=== PATIENT | male | born 1950 | race African-American/Black ===

== ENCOUNTER 2016-06-29 13:05 | Inpatient (IN) | payer MEDICARE, OTHER ==
--- NOTE | ~2016-06-29 | DS ---
Discharge Summary [facility] [address] [place]. [address] NAME: GILDARDO LAZO JR : 50 STATUS : DIS IN PAT#: [id number] AGE: 65 ADM/REG DATE : 06/29/16 MR#: [id number] REPORT SERV DATE: 07/10/16 DICTATED BY: PATRICIA ORTEGA DATE: 07/10/16 REPORT STATUS : Draft TRANSCRIBED BY: DALE DATE: 07/10/16 Data Collection from hospitalization DISCHARGE DIAGNOSES: 1. End-stage renal disease. 2. Hyperkalemia. 3. Hypertension. 4. Hepatitis C. 5. Ejection fraction 40%. 6. Bradycardia. 7. Hyperlipidemia. 8. Neuropathy. 9. Hypoalbuminemia. 10.History of hepatitis C. 11.History of gout. 12.Neuropathy. 13.History of dialysis noncompliance. 14.History of lacunar infarct. CONSULTATIONS: Volodymyr Gunter M.D. PROCEDURES PERFORMED: 1. Left upper extremity fistulogram. 2. Percutaneous angioplasty of the AV fistula using a 9 mm balloon, 06/30/2016. DISCHARGE MEDICATIONS: Xanax 1 mg daily as needed, Elavil 50 mg at bedtime, aspirin 81 mg daily, Coreg 3.125 mg twice a day, Sensipar 60 mg daily, Plavix 75 mg daily, Neurontin 300 mg twice a day as needed, Nitrostat 0.4 mg sublingually as needed, Pravachol 40 mg at bedtime, Renvela 2400 mg three times a day with meals. CONDITION ON DISCHARGE: Stable. DISPOSITION: The patient was discharged home on a renal diet with activities as instructed. He would follow up with Dr. Volodymyr Gunter as instructed. He was scheduled for his hemodialysis appointment at [facility]. HOSPITAL COURSE: This is a 65-year-old man who has end-stage renal disease and dialyzes on Mondays, Wednesdays, and Fridays through a left upper arm fistula at the [facility] in [place]. He had been on dialysis since 2004. I called the clinic on the day of this admission and discussed with the staff there that he had not missed any treatments the previous week. On 06/24/2016 on a lab draw, his predialysis potassium was 8.2. On 06/26/2016, his predialysis lab draw showed potassium 7.2. At that time, he was placed on Veltassa prescription for potassium lowering. He was scheduled for [facility]. 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 In the emergency room, he was found to have potassium of 9.0. He had EKG changes with bradycardia and had a pulse of 41 on admission. This was treated medically. Neurology was called and he was taken to the Dialysis Unit urgently where dialysis was initiated. In Discharge Summary [facility] [address] [facility] [place]. [address] NAME: GILDARDO LAZO : 50 STATUS : DIS IN PAT#: [id number] AGE: 65 ADM/REG DATE : 06/29/16 MR#: [id number] REPORT SERV DATE: 07/10/16 DICTATED BY: PATRICIA ORTEGA DATE: 07/10/16 REPORT STATUS : Draft TRANSCRIBED BY: DALE DATE: 07/10/16 talking with him, he denied any dietary noncompliance but interestingly he had been eating some self-rising flower out of the bag over the past several weeks. He was admitted to the hospital at this time for further evaluation and treatment. Upon admission, his creatinine level was 15.2. He had not had recent dialysis noncompliance. He has severe hyperkalemia with potassium level of 9 and this was life- threatening. He also had EKG changes. He was going to be urgently dialyzed with 1 potassium dialysate for one hour and then 2 potassium dialysate for two hours. JUDY inhibitor was going to be stopped. Dialysis would be performed again the following day. We would protect his left arm. He was seen in consultation by Dr. Volodymyr Gunter for evaluation of possible recirculation. His potassium had decreased. The patient denied any complaints. He seemed to think that dialysis was going well. He said that he is compliant with his dialysis but there was documentation to suggest otherwise. The patient does have end-stage renal disease. There was some concern that he had some recirculation issues. Given the severity of his hyperkalemia, he felt that it was obligated to perform a fistulogram with possible intervention. The patient agreed to proceed. The following day, the patient underwent left upper extremity fistulogram and percutaneous angioplasty of the AV fistula using a 9 mm balloon. Hemodialysis therapy was performed. He was still hyperkalemic. Supportive care continued. On 07/01/2016, he continued to undergo hemodialysis. He had no dyspnea. He had no edema. Over the next couple of days, he has no dyspnea while lying flat. He continued to undergo hemodialysis therapy. He had no new complaints. He remained alert and cooperative. Discharge planning was performed. Potassium level was 5.0. On 07/04/2016, he continued to do well. Discharge instructions were given. Due to his improved and stable condition, he was discharged home with the above-stated instructions. Information collected by: Shelby Harmon I submit the above information as my discharge summary. TG/MODMalaika Patricia Ortega M.D. / [id number] CC: Caro Luong M.D. Sachin V Phade, M.D.
--- NOTE | ~2016-06-29 | OP ---
Record Of Operation [facility] [address] [place]. [address] NAME: GILDARDO LAZO JR : 50 STATUS : ADM IN PAT#: [id number] AGE: 65 ADM/REG DATE : 06/29/16 MR#: [id number] REPORT SERV DATE: 07/01/16 DICTATED BY: VOLODYMYR GUNTER DATE: 07/01/16 REPORT STATUS : Draft TRANSCRIBED BY: DALE DATE: 07/01/16 DATE OF PROCEDURE: 06/30/2016 PREOPERATIVE DIAGNOSES: 1. Recirculation. 2. End-stage renal disease. 3. Hyperkalemia. POSTOPERATIVE DIAGNOSES: 1. Recirculation. 2. End-stage renal disease. 3. Hyperkalemia. PROCEDURE: 1. Left upper extremity fistulogram. 2. Percutaneous angioplasty of the AV fistula using a 9 mm balloon. FLAT LOCKER: None. ANESTHESIA: MAC plus local. INDICATIONS: The patient is a 65-year-old gentleman who has a left brachiocephalic fistula that is apparently had multiple interventions in the past. He has recurrent hyperkalemia and it is thought that he is recirculating. Thus, he was consented for intervention. DESCRIPTION OF PROCEDURE: After informed consent was obtained, the patient's left upper extremity was prepped and draped in usual sterile fashion. Ultrasound-guided access was obtained of the left upper extremity AV fistula in an antegrade fashion. I obtained a fistulogram. There was a stenosis within one of the stents near the shoulder. This was within the cephalic vein. I placed a 6-[place] sheath and angioplastied this with a 9 mm balloon. There was a great result with this. There was no other significant stenosis identified. Thus, I withdrew my wire, catheter, and sheath and placed a stitch for hemostasis. The patient tolerated the procedure well without any intraprocedural complications noted. RANULFO/DALE Volodymyr Gunter M.D. / [id number] CC: Pramod Schwartz M.D.
--- NOTE | ~2016-06-29 | HP ---
History And Physical [facility] [address] [place]. [address] NAME: GILDARDO LAZO JR : 50 STATUS : ADM IN [facility]#: [id number] AGE: 65 ADM/REG DATE : 06/29/16 MR#: [id number] REPORT SERV DATE: 06/29/16 DICTATED BY: PATRICIA SCHWARTZ DATE: 06/29/16 REPORT STATUS : Draft TRANSCRIBED BY: DALE DATE: 06/29/16 DATE OF ADMISSION: 06/29/2016 CHIEF COMPLAINT: Weakness. HISTORY OF PRESENT ILLNESS: Mr. Lazo is a 65-year-old male with ESRD who dialyzes on Wednesday, Wednesday, and Wednesday through a left upper arm fistula at the [facility] in [place], [place]. He has been on dialysis since December 2004. I called the clinic today and discussed with the staff there that he has not missed any treatments last week. On 06/24/2016 lab draw, his predialysis potassium was 8.2. On 06/26/2016, his predialysis lab draw showed potassium 7.2. At that time, he was placed on Veltassa prescription for potassium lowering. He was scheduled for outpatient fistulogram tomorrow [facility]. 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 Here in the ER, he was found to have potassium of 9.0. He had EKG changes with bradycardia having a pulse of 41 on admission. This was treated medically. Nephrology was called and he was brought up to the dialysis unit urgently where dialysis was initiated. In talking with him, he denies any dietary noncompliance, but interestingly, he has been eating some self-rising flower out of the bag over the last several weeks. PAST MEDICAL HISTORY: 1. ESRD, Wednesday, Wednesday, Wednesday, left upper arm fistula, [facility], December 2004. 2. Hypertension. 3. Hyperlipidemia. 4. History of gout. 5. Hepatitis C. 6. Neuropathy. 7. Cardiac catheterization with nonischemic cardiomyopathy, EF 40% by echo, February 2014. 8. History of dialysis noncompliance with two admissions for hyperkalemia, March 2016. 9. History lacunar infarct on previous imaging studies. MEDICATIONS: Aspirin 81 mg daily, Coreg 3.125 mg b.i.d., Elavil 50 mg at h.s., Neurontin 100 mg t.i.d., Percocet p.r.n., Plavix 75 mg daily, Pravachol 40 mg h.s., Zestril 5 mg h.s., Renvela 2400 mg with meals, Sensipar 60 mg on dialysis days, Tums 2000 mg q.h.s., and Veltassa one packet daily. FAMILY HISTORY: No ESRD. SOCIAL HISTORY: He is a , nonsmoker. REVIEW OF SYSTEMS: See HPI for pertinent details. PHYSICAL EXAMINATION: VITAL SIGNS: Blood pressure 111/69, pulse 62, respirations 27, and 95% sat receiving a nebulizer treatment for hyperkalemia. History And Physical [address] [address] NAME: GILDARDO LAZO JR : 50 STATUS : ADM IN [facility]#: [id number] AGE: 65 ADM/REG DATE : 06/29/16 MR#: [id number] REPORT SERV DATE: 06/29/16 DICTATED BY: PATRICIA SCHWARTZ DATE: 06/29/16 REPORT STATUS : Draft TRANSCRIBED BY: DALE DATE: 06/29/16 GENERAL: He is a pleasant, male, awake, alert, oriented, cooperative with exam. He is not weighed today as he is on an ER stretcher. He is in no distress, lying flat. HEENT: Sclerae are without icterus. Conjunctivae are not injected. Oropharynx is clear. NECK: Supple. No JVD. LUNGS: He has bilateral rhonchi without dyspnea or tachypnea. Regular rate and rhythm with peaked T-waves on the monitor. ABDOMEN: Soft, nontender, and nondistended. Bowel sounds are present throughout without rebound, guarding, or peritoneal signs. EXTREMITIES: Without edema. SKIN: Without rash. NEURO: Nonfocal. Left upper arm AV fistula blood flow 450 mL/minute. DIAGNOSTIC DATA: Chest x-ray is pending at the time of this dictation. LABORATORY DATA: Sodium 134, potassium 9, bicarb 28, BUN 60, creatinine 15.2, calcium 8.2, and magnesium 2.8. Troponin 0.06. White count 7.9, hemoglobin 13.7, and platelets 185,000. INR 1.2. ASSESSMENT AND PLAN: Mr. Lazo has end-stage renal disease with hyperkalemia, no recent dialysis noncompliance, presents with severe hyperkalemia that is life threatening with EKG changes. Admit to the Renal Service. We will urgently dialyze with one potassium dialysate for one hour and then two potassium dialysate for two hours. We will stop his JUDY inhibitor. Dialysis again tomorrow, protect the left arm. We will ask Vascular to evaluate inpatient for fistulogram to evaluate for possible anatomic causes of under dialysis. Supportive care. Watch labs. NC/MODL Patricia Schwartz M.D. / [id number] CC: Patricia Schwartz M.D.
--- NOTE | ~2016-06-29 | CN ---
Consultation Report [place] [id number] [facility] [place]. [address] NAME: GILDARDO LAZO JR : 50 STATUS : ADM IN PAT#: [id number] AGE: 65 ADM/REG DATE : 06/29/16 MR#: [id number] REPORT SERV DATE: 06/30/16 DICTATED BY: VOLODYMYR GUNTER DATE: 06/29/16 REPORT STATUS : Draft TRANSCRIBED BY: DALE DATE: 06/29/16 CONSULT NOTE DATE OF CONSULTATION: 06/29/2016 REASON FOR CONSULTATION: Evaluation for possible recirculation. REFERRING PHYSICIAN: Pramod Schwartz M.D. BRIEF HISTORY: The patient is a 65-year-old gentleman with past medical history significant for end-stage renal disease, hypertension, hepatitis C, chronic back pain, and some question of a stroke in the past, who was admitted to the hospital with hyperkalemia. He underwent dialysis today. His potassium has come down. As he reportedly had dialysis as recently as Wednesday, there was some thought that he has recirculation. I was consulted for evaluation and treatment. The patient denies any complaints. He seems to think that dialysis has been going well. He says that he is compliant with his dialysis, but there is documentation to suggest otherwise. PAST MEDICAL HISTORY: End-stage renal disease, hypertension, hepatitis C, gout, depression, chronic back pain, neuropathy prior congestive heart failure with an EF of 25%, and stroke. PAST SURGICAL HISTORY: Cardiac catheterization, left brachiocephalic arteriovenous fistula. SOCIAL HISTORY: He denies tobacco, alcohol, or drug use. FAMILY HISTORY: Noncontributory. MEDICATIONS: Documented on the chart and were reviewed. ALLERGIES: NONE. REVIEW OF SYSTEMS: Complete review of systems was performed and is negative with the exception of aforementioned findings. PHYSICAL EXAMINATION: VITAL SIGNS: Vital signs are documented on the chart and were reviewed. GENERAL: The patient awake, alert, oriented. No apparent distress. He does seem a little sleepy. HEAD AND NECK: Benign. HEART: Regular rate and rhythm. LUNGS: Clear. ABDOMEN: Soft, nontender, nondistended with a nonaneurysmal aorta. EXTREMITIES: He has a normal complement of upper extremity pulses without any significant Consultation Report [place] [id number] [facility] [place]. [address] NAME: GILDARDO LAZO JR : 50 STATUS : ADM IN PAT#: [id number] AGE: 65 ADM/REG DATE : 06/29/16 MR#: [id number] REPORT SERV DATE: 06/30/16 DICTATED BY: VOLODYMYR GUNTER DATE: 06/29/16 REPORT STATUS : Draft TRANSCRIBED BY: MODMalaika DATE: 06/29/16 edema or ischemic ulcerations. He has a left brachiocephalic fistula in place. There was a good thrill within the fistula. He has palpable femoral pulses. His feet are pink and warm. NEUROLOGIC: Grossly nonfocal. MUSCULOSKELETAL: Otherwise benign. LABORATORY DATA: His laboratory investigations reveal a hyperkalemia upon admission that has since resolved. ASSESSMENT AND PLAN: It looks like this gentleman has a history of end-stage renal disease and was admitted with hyperkalemia. There was some concern that he has some recirculation issues. Given the severity of his hyperkalemia, I think we are obligated to perform a fistulogram with possible intervention. Risks, benefits, and alternatives were discussed. He agreed to proceed. We will get this scheduled for tomorrow. FILBERT GROWER/DALE Volodymyr Gunter M.D. / [id number] CC: Pramod Schwartz M.D.
[2016-06-29 12:43] LABS: BASOPHILS 0.3 %; BASOPHILS ABSOLUTE 0.02 10/3/uL (0.0-0.16); EOSINOPHILS 2.5 %; HEMATOCRIT 45.3 % (40.0-51.0); HEMOGLOBIN 13.7 g/dL (13.6-17.8); IMMATURE GRANULOCYTES 0.3 %; IMMATURE GRANULOCYTES ABSOLUTE 0.02 10/3/uL (0.0-0.11); LYMPHOCYTES 25.9 %; LYMPHOCYTES ABSOLUTE 2.04 10/3/uL (0.67-4.30); MEAN CORPUS HGB CONC 30.2 g/dL (32.0-36.0); MEAN CORPUSCULAR HEMOGLOB 23.1 pg (26.0-34.0); MEAN CORPUSCULAR VOLUME 76.5 fL (80-100); MEAN PLATELET VOLUME 9.5 fL (9.2-13.0); MONOCYTES 6.2 %; MONOCYTES ABSOLUTE 0.49 10/3/uL (0.21-1.20); NEUTROPHILS 64.8 %; NEUTROPHILS ABSOLUTE 5.12 10/3/uL (2.02-8.40); PLATELET COUNT 185 10/3/uL (150-400); RBC DISTRIBUTION WIDTH 17.8 % (12.0-16.0); RED CELL COUNT 5.92 10/6/uL (4.7-6.1); WHITE BLOOD CELLS 7.9 10/3/uL (4.5-10.5)
[2016-06-29 12:44] LABS: ER CBC TAT 0 Hrs 10 Mins; MANUAL DIFF NO %
[2016-06-29 12:50] LABS: INTERNATIONAL NORMAL RATI 1.2 UNITS (-); PARTIAL THROMBO TIME 29.4 SEC (22.5-37.2); PROTIME (NOT ORD) 14.9 SEC (12.0-14.5)
[2016-06-29 13:00] LABS: BUN (BLOOD UREA NITROGEN) 60 MG/DL (6-23); CALCIUM, SERUM 8.2 MG/DL (8.5-10.4); CHEST PAIN PROFILE TAT 0 Hrs 27 Mins; CHLORIDE, SERUM 99 MMOL/L (96-112); CO2 (CARBON DIOXIDE) 28 MMOL/L (24-34); GFR AFRICAN AMERICAN 3 ML/MIN (>=60); GFR NON AFRICAN AMERICAN 3 ML/MIN (>=60); GLUCOSE, SERUM 85 MG/DL (60-99); SODIUM, SERUM 134 MMOL/L (135-148); TROPONIN I 0.06 NG/ML (<0.05)
[~2016-06-29 13:05] MED LIST: ADALAT CC90 MG PO; ADALAT PO; AMIT50 PO; AMITRIPTYLINE PO; ASAB PO; ASCRIPTIN PO; CARDU2 PO; COREG PO; COREG12 PO; COREG3 PO; COREG6 PO; DIALYSIS; DOCUSOFT S100 MG PO; FOSRENOL1000 MG PO; GABAPENTIN PO; HALF81 PO; IMDUR120 PO; IMDUR30 PO; INH300 PO; ISOSORBIDE PO; LIOR10 PO; LISINOPRIL PO; LOP25 PO; LYRICA75 PO; METOPROLOL PO; NEPHROCAPS PO; NEUR100 PO; NEUR300 PO; NEUR400 PO; NITROSTAT0.4 MG SL; OXYCON20 PO; PERCOCET1 TA4 PO; PHOSLO PO; PLAVIX PO; PRAVACHOL40 MG PO; PRILO PO; PRIN10 PO; RENAGEL PO; RENO CAPS PO; RENVELA800 MG PO; SENSIPAR30 MG PO; SENSIPAR60 MG PO; SEVE800T PO; TOPXL100 PO; TOPXL25 PO; TRIAMCINOLON0.13 EX; TUMSROLL PO; VOLT75 PO; XANAX1 MG PO; ZOCOR20 PO
[2016-06-29 18:04] LABS: ALBUMIN 3.7 G/DL (3.5-5.0); CALCIUM, SERUM 8.9 MG/DL (8.5-10.4); CHLORIDE, SERUM 104 MMOL/L (96-112); CO2 (CARBON DIOXIDE) 27 MMOL/L (24-34); SODIUM, SERUM 139 MMOL/L (135-148)
[2016-06-29 18:07] LABS: BUN (BLOOD UREA NITROGEN) 18 MG/DL (6-23); CREATININE 5.92 MG/DL (0.70-1.30); GFR AFRICAN AMERICAN 11 ML/MIN (>=60); GFR NON AFRICAN AMERICAN 9 ML/MIN (>=60); GLUCOSE, SERUM 106 MG/DL (60-99); PHOSPHORUS, SERUM 2.3 MG/DL (2.5-4.5); POTASSIUM, SERUM 4.1 MMOL/L (3.5-5.3)
[2016-06-29] MEDS ORDERED: SEVE800T PO (19:40)
[2016-06-29] MEDS ORDERED: PRAVACHOL40 MG PO (19:40)
[2016-06-29] MEDS ORDERED: SENSIPAR60 MG PO (19:41)
[2016-06-29] MEDS ORDERED: XANAX1 MG PO (19:41)
[2016-06-29] MEDS ORDERED: HALF81 PO (19:41)
[2016-06-29] MEDS ORDERED: AMIT50 PO (19:41)
[2016-06-29] MEDS ORDERED: NITROSTAT0.4 MG SL (19:42)
[2016-06-29] MEDS ORDERED: NEUR300 PO (19:42)
[2016-06-29] MEDS ORDERED: COREG3 PO (19:42)
[2016-06-29] MEDS ORDERED: PLAVIX PO (19:43)
[2016-06-30 08:15] LABS: ALBUMIN 3.2 G/DL (3.5-5.0); CHLORIDE, SERUM 101 MMOL/L (96-112); CO2 (CARBON DIOXIDE) 27 MMOL/L (24-34); SODIUM, SERUM 136 MMOL/L (135-148)
[2016-06-30 08:22] LABS: BUN (BLOOD UREA NITROGEN) 35 MG/DL (6-23); CALCIUM, SERUM 7.6 MG/DL (8.5-10.4); GFR AFRICAN AMERICAN 5 ML/MIN (>=60); GFR NON AFRICAN AMERICAN 4 ML/MIN (>=60); GLUCOSE, SERUM 83 MG/DL (60-99); PHOSPHORUS, SERUM 3.9 MG/DL (2.5-4.5); POTASSIUM, SERUM 7.3 MMOL/L (3.5-5.3)
[2016-07-01 06:40] LABS: ALBUMIN 2.8 G/DL (3.5-5.0); CALCIUM, SERUM 8.3 MG/DL (8.5-10.4); CHLORIDE, SERUM 100 MMOL/L (96-112); CO2 (CARBON DIOXIDE) 29 MMOL/L (24-34); GLUCOSE, SERUM 70 MG/DL (60-99); SODIUM, SERUM 137 MMOL/L (135-148)
[2016-07-01 06:46] LABS: BUN (BLOOD UREA NITROGEN) 25 MG/DL (6-23); CREATININE 8.56 MG/DL (0.70-1.30); GFR AFRICAN AMERICAN 7 ML/MIN (>=60); GFR NON AFRICAN AMERICAN 6 ML/MIN (>=60); PHOSPHORUS, SERUM 5.3 MG/DL (2.5-4.5); POTASSIUM, SERUM 6.6 MMOL/L (3.5-5.3)
[2016-07-02 07:29] LABS: ALBUMIN 2.8 G/DL (3.5-5.0); BUN (BLOOD UREA NITROGEN) 24 MG/DL (6-23); CHLORIDE, SERUM 105 MMOL/L (96-112); GLUCOSE, SERUM 70 MG/DL (60-99); SODIUM, SERUM 141 MMOL/L (135-148)
[2016-07-02 07:34] LABS: CO2 (CARBON DIOXIDE) 24 MMOL/L (24-34); CREATININE 7.52 MG/DL (0.70-1.30); GFR AFRICAN AMERICAN 8 ML/MIN (>=60); GFR NON AFRICAN AMERICAN 7 ML/MIN (>=60); PHOSPHORUS, SERUM 3.9 MG/DL (2.5-4.5); POTASSIUM, SERUM 6.7 MMOL/L (3.5-5.3)
[2016-07-02 09:33] LABS: POTASSIUM, SERUM 4.8 MMOL/L (3.5-5.3)
[2016-07-03 05:48] LABS: BUN (BLOOD UREA NITROGEN) 22 MG/DL (6-23); CALCIUM, SERUM 8.9 MG/DL (8.5-10.4); CHLORIDE, SERUM 103 MMOL/L (96-112); CO2 (CARBON DIOXIDE) 26 MMOL/L (24-34); CREATININE 6.88 MG/DL (0.70-1.30); GFR AFRICAN AMERICAN 9 ML/MIN (>=60); GFR NON AFRICAN AMERICAN 8 ML/MIN (>=60); GLUCOSE, SERUM 95 MG/DL (60-99); PHOSPHORUS, SERUM 4.5 MG/DL (2.5-4.5); SODIUM, SERUM 140 MMOL/L (135-148)
[2016-07-04 09:14] LABS: BASOPHILS 0.2 %; BASOPHILS ABSOLUTE 0.01 10/3/uL (0.0-0.16); EOSINOPHILS ABSOLUTE 0.26 10/3/uL (0.0-0.53); HEMATOCRIT 40.7 % (40.0-51.0); HEMOGLOBIN 12.3 g/dL (13.6-17.8); LYMPHOCYTES 28.3 %; LYMPHOCYTES ABSOLUTE 1.47 10/3/uL (0.67-4.30); MANUAL DIFF NO %; MEAN CORPUS HGB CONC 30.2 g/dL (32.0-36.0); MEAN CORPUSCULAR HEMOGLOB 22.9 pg (26.0-34.0); MEAN CORPUSCULAR VOLUME 75.8 fL (80-100); MEAN PLATELET VOLUME 8.9 fL (9.2-13.0); MONOCYTES 7.1 %; MONOCYTES ABSOLUTE 0.37 10/3/uL (0.21-1.20); NEUTROPHILS 59.4 %; NEUTROPHILS ABSOLUTE 3.08 10/3/uL (2.02-8.40); PLATELET COUNT 134 10/3/uL (150-400); RBC DISTRIBUTION WIDTH 17.9 % (12.0-16.0); RED CELL COUNT 5.37 10/6/uL (4.7-6.1); WHITE BLOOD CELLS 5.2 10/3/uL (4.5-10.5)
[2016-07-04 09:28] LABS: ALBUMIN 2.8 G/DL (3.5-5.0); CHLORIDE, SERUM 101 MMOL/L (96-112); CO2 (CARBON DIOXIDE) 27 MMOL/L (24-34); GLUCOSE, SERUM 83 MG/DL (60-99); POTASSIUM, SERUM 5.3 MMOL/L (3.5-5.3); SODIUM, SERUM 139 MMOL/L (135-148)
[2016-07-04 09:36] LABS: BUN (BLOOD UREA NITROGEN) 36 MG/DL (6-23); CALCIUM, SERUM 7.6 MG/DL (8.5-10.4); CREATININE 9.81 MG/DL (0.70-1.30); GFR AFRICAN AMERICAN 6 ML/MIN (>=60); GFR NON AFRICAN AMERICAN 5 ML/MIN (>=60)
[2016-08-25] MEDS ORDERED: XANAX1 MG PO (14:26)
[2016-08-25] MEDS ORDERED: AMIT50 PO (14:26)
[2016-08-25] MEDS ORDERED: HALF81 PO (14:27)
[2016-08-25] MEDS ORDERED: PERCOCET 10/3251 TAB PO (14:27)
[2016-08-25] MEDS ORDERED: SEVE800T PO (14:27)
[2016-08-25] MEDS ORDERED: SENSIPAR60 MG PO (14:27)
[2016-08-25] MEDS ORDERED: COREG3 PO (14:28)
[2016-08-25] MEDS ORDERED: NEUR300 PO (14:28)
[2016-08-25] MEDS ORDERED: PRAVACHOL40 MG PO (14:28)
[2016-08-25] MEDS ORDERED: NITROSTAT0.4 MG SL (14:29)
== END 2016-07-04 19:08 | disposition home or self-care (01) | DRG 628 ==
LOC: ER 13:05 → 2SO 16:53
PROVIDERS: Emergency Medicine; Internal Medicine Nephrology; Nurse Practitioner; Surgery
PROC: 5A1D60Z (ICD-10-PCS; 2016-06-29)
PROC: 057F3ZZ Dilation of Left Cephalic Vein, Percutaneous Approach (ICD-10-PCS; principal; 2016-06-30 17:00)
PROC: B31J1ZZ Fluoroscopy of Left Upper Extremity Arteries using Low Osmolar Contrast (ICD-10-PCS; 2016-06-30 17:00)
DX: E87.5 Hyperkalemia (principal); N18.6 End stage renal disease; I13.2 Hypertensive heart and chronic kidney disease with heart failure and with stage 5 chronic kidney disease, or end stage renal disease; I42.9 Cardiomyopathy, unspecified; G62.9 Polyneuropathy, unspecified; E88.09 Other disorders of plasma-protein metabolism, not elsewhere classified; I50.22 Chronic systolic (congestive) heart failure; R00.1 Bradycardia, unspecified; E78.5 Hyperlipidemia, unspecified; M10.9 Gout, unspecified; B19.20 Unspecified viral hepatitis C without hepatic coma; Z91.15 Patient's noncompliance with renal dialysis; Z99.2 Dependence on renal dialysis; Z86.73 Personal history of transient ischemic attack (TIA), and cerebral infarction without residual deficits
CPT/HCPCS: 36600; 36902; 71010; 80048; 80069; 82330; 82550; 82803; 82947; 82962; 83735; 83880; 84132; 84295; 84484; 85014; 85025; 85610; 85730; 93005; 94640; 96374; 96375; 99291; A9270-GY; C1725; C1769; C1894; G0257; J0610; J3010; Q9966

== ENCOUNTER 2016-07-17 14:18 | Emergency (ER) | payer MEDICARE, OTHER ==
[2016-07-17 14:26] LABS: BASOPHILS 0 %; EOSINOPHILS 4.6 %; EOSINOPHILS ABSOLUTE 0.15 10/3/uL (0.0-0.53); HEMATOCRIT 42.6 % (40.0-51.0); HEMOGLOBIN 12.8 g/dL (13.6-17.8); IMMATURE GRANULOCYTES 0.3 %; IMMATURE GRANULOCYTES ABSOLUTE 0.01 10/3/uL (0.0-0.11); LYMPHOCYTES 26.5 %; LYMPHOCYTES ABSOLUTE 0.86 10/3/uL (0.67-4.30); MEAN CORPUSCULAR HEMOGLOB 23.1 pg (26.0-34.0); MEAN CORPUSCULAR VOLUME 76.9 fL (80-100); MONOCYTES 15.1 %; MONOCYTES ABSOLUTE 0.49 10/3/uL (0.21-1.20); NEUTROPHILS 53.5 %; NEUTROPHILS ABSOLUTE 1.73 10/3/uL (2.02-8.40); PLATELET COUNT 143 10/3/uL (150-400); RED CELL COUNT 5.54 10/6/uL (4.7-6.1); WHITE BLOOD CELLS 3.2 10/3/uL (4.5-10.5)
[2016-07-17 14:29] LABS: MANUAL DIFF NO %
[2016-07-17 14:32] LABS: INTERNATIONAL NORMAL RATI 1.1 UNITS (-); PARTIAL THROMBO TIME 31.3 SEC (22.5-37.2); PROTIME (NOT ORD) 13.8 SEC (12.0-14.5)
[2016-07-17 14:40] LABS: BUN (BLOOD UREA NITROGEN) 14 MG/DL (6-23); CALCIUM, SERUM 8.4 MG/DL (8.5-10.4); CHEST PAIN PROFILE TAT 0 Hrs 18 Mins; CHLORIDE, SERUM 96 MMOL/L (96-112); CO2 (CARBON DIOXIDE) 30 MMOL/L (24-34); CREATININE 6.58 MG/DL (0.70-1.30); GFR AFRICAN AMERICAN 9 ML/MIN (>=60); GFR NON AFRICAN AMERICAN 8 ML/MIN (>=60); GLUCOSE, SERUM 97 MG/DL (60-99); SODIUM, SERUM 135 MMOL/L (135-148); TROPONIN I 0.07 NG/ML (<0.05)
[2016-08-25] MEDS ORDERED: AMIT50 PO (14:26)
[2016-08-25] MEDS ORDERED: XANAX1 MG PO (14:26)
[2016-08-25] MEDS ORDERED: SEVE800T PO (14:27)
[2016-08-25] MEDS ORDERED: PERCOCET 10/3251 TAB PO (14:27)
[2016-08-25] MEDS ORDERED: HALF81 PO (14:27)
[2016-08-25] MEDS ORDERED: SENSIPAR60 MG PO (14:27)
[2016-08-25] MEDS ORDERED: NEUR300 PO (14:28)
[2016-08-25] MEDS ORDERED: PRAVACHOL40 MG PO (14:28)
[2016-08-25] MEDS ORDERED: COREG3 PO (14:28)
[2016-08-25] MEDS ORDERED: NITROSTAT0.4 MG SL (14:29)
== END 2016-07-17 17:42 | disposition home or self-care (01) ==
LOC: ER 14:18
PROVIDERS: Emergency Medicine
DX: R07.89 Other chest pain (principal); I13.0 Hypertensive heart and chronic kidney disease with heart failure and stage 1 through stage 4 chronic kidney disease, or unspecified chronic kidney disease; N18.9 Chronic kidney disease, unspecified; I50.9 Heart failure, unspecified; Z88.5 Allergy status to narcotic agent; Z79.899 Other long term (current) drug therapy; Z79.82 Long term (current) use of aspirin
CPT/HCPCS: 71010; 80048; 83735; 84484; 85025; 85610; 85730; 93005; 99285

== ENCOUNTER 2016-08-25 15:43 | Inpatient (IN) | payer MEDICARE, OTHER ==
--- NOTE | ~2016-08-25 | OP ---
Record Of Operation [facility] [address] [place]. [address] NAME: GILDARDO LAZO JR : 50 STATUS : DIS IN PAT#: [id number] AGE: 65 ADM/REG DATE : 08/25/16 MR#: [id number] REPORT SERV DATE: 08/29/16 DICTATED BY: VOLODYMYR GUNTER DATE: 08/29/16 REPORT STATUS : Draft TRANSCRIBED BY: DALE DATE: 08/29/16 DATE OF PROCEDURE: 08/26/2016 PREOPERATIVE DIAGNOSIS: Hyperkalemia. POSTOPERATIVE DIAGNOSIS: Hyperkalemia. PROCEDURE: Left upper extremity fistulogram with percutaneous angioplasty of the left innominate vein using a 10-mm balloon. SURGEON: Volodymyr Gunter M.D. MARKET INVESTIGATOR: None. ANESTHESIA: MAC plus local. INDICATIONS: The patient is a 65-year-old gentleman, who has persistent issues with hyperkalemia. There is some question as to whether he has recirculation issues, so he was consented for intervention. DESCRIPTION OF PROCEDURE: After informed consent was obtained, the patient was taken to the operating room and placed in the supine position on the operating table. Monitored anesthesia was administered. The patient's left upper extremity was prepped and draped in usual sterile fashion. Ultrasound-guided access was obtained of the left upper extremity AV fistula in an antegrade fashion. I obtained a fistulogram that demonstrated no hemodynamically significant stenosis of the AV fistula in two different views. There were multiple stents placed that were all patent, but there was about 30% stenosis within the left innominate vein stent. I placed a sheath and angioplastied the left innominate vein with a 10-mm balloon. There was a great result with this. Thus, I withdrew my wire, catheter, and sheath, and placed a stitch for hemostasis. The patient tolerated the procedure well without any intraprocedural complications noted. RANULFO/DALE Volodymyr Gunter M.D. / [id number] CC: Caro Ortiz M.D.
--- NOTE | ~2016-08-25 | CN ---
Consultation Report [facility] [address] [place]. [address] NAME: GILDARDO LAZO JR : 50 STATUS : ADM IN [facility]#: [id number] AGE: 65 ADM/REG DATE : 08/25/16 MR#: [id number] REPORT SERV DATE: 08/25/16 DICTATED BY: LINCOLN NICOLE DATE: 08/25/16 REPORT STATUS : Draft TRANSCRIBED BY: MODL DATE: 08/25/16 NEPHROLOGY CONSULTATION DATE OF CONSULTATION: HISTORY OF PRESENT ILLNESS: Mr. Lazo is a 65-year-old black male, presented to Dr. Cleveland of Cardiology today complaining of weakness, and found to have a bradycardia. He was sent to the emergency room and was found to have a high potassium of 6.8. He was just treated there in the emergency room and transferred to [facility] for urgent hemodialysis. PAST MEDICAL HISTORY: End-stage renal disease, on Wednesday, Wednesday, and Wednesday at outpatient clinic, chronic hypertension, hyperlipidemia, gout, hepatitis C, neuropathy, nonischemic cardiomyopathy with ejection fraction of 40%, history of lacunar infarcts in the past, an AV fistula, left upper arm, which has been evaluated recently for recirculation and did not find to have any. REVIEW OF SYSTEMS: Dialyzed on 08/24/2016, without difficulty, but loves [employer] potato chips. He has been weak since his last hemodialysis. SOCIAL HISTORY: Unchanged. FAMILY HISTORY: Unchanged. HOME MEDICATIONS: Not available. PHYSICAL EXAMINATION: GENERAL: He is in the urgent hemodialysis suite. Alert, cooperative, and in no acute distress. VITAL SIGNS: Blood pressure 123/80, heart rate of 69, respirations 18 to 20, 95% saturation on room air. HEENT: Examination unremarkable. NECK: Without jugular venous distention. EXTREMITIES: He has left upper arm AV graft. No edema. SKIN: Dry skin. LUNGS: Clear. CARDIOVASCULAR: Without murmur gallops or rubs. ABDOMEN: Soft and benign. Bowel sounds are present. No bruits. NEUROLOGIC: Nonfocal neurological exam. In fact he was ambulating to the bathroom earlier. LABORATORY DATA: Sodium 140, potassium 6.8, chloride 101, CO2 34, with a BUN of 24, creatinine 10.6, blood sugar 101, calcium is 9.9, magnesium 2.5, troponin 0.05. White count 4.6, hemoglobin 13, hematocrit 47, and platelet 220,000. Consultation Report [place] [id number] [place]. [address] NAME: GILDARDO LAZO JR : 50 STATUS : ADM IN PAT#: [id number] AGE: 65 ADM/REG DATE : 08/25/16 MR#: [id number] REPORT SERV DATE: 08/25/16 DICTATED BY: LINCOLN NICOLE DATE: 08/25/16 REPORT STATUS : Draft TRANSCRIBED BY: DALE DATE: 08/25/16 ASSESSMENT: 1. Elevated potassium, worry about compliance as he claims to eat potatoes regularly, could be access recirculating. 2. End-stage renal disease, on Wednesday, Wednesday, and Wednesday, urgent hemodialysis today, and again tomorrow. 3. See past medical history. PLAN: Urgent hemodialysis. Repeat lab work on starting dialysis, and we will recheck in a.m. CITLALI/DALE Lincoln Nicole M.D. / [id number] CC: Caro Ortiz M.D.
[~2016-08-25 15:43] MED LIST changes: +PERCOCET 10/3251 TAB PO
[2016-08-25 16:26] LABS: BASOPHILS 0.4 %; BASOPHILS ABSOLUTE 0.02 10/3/uL (0.0-0.16); EOSINOPHILS 3.2 %; EOSINOPHILS ABSOLUTE 0.15 10/3/uL (0.0-0.53); HEMOGLOBIN 12.6 g/dL (13.6-17.8); IMMATURE GRANULOCYTES 0.2 %; IMMATURE GRANULOCYTES ABSOLUTE 0.01 10/3/uL (0.0-0.11); LYMPHOCYTES 21.1 %; LYMPHOCYTES ABSOLUTE 0.98 10/3/uL (0.67-4.30); MEAN CORPUS HGB CONC 29.9 g/dL (32.0-36.0); MEAN CORPUSCULAR VOLUME 76.7 fL (80-100); MEAN PLATELET VOLUME 8.9 fL (9.2-13.0); MONOCYTES 9.5 %; MONOCYTES ABSOLUTE 0.44 10/3/uL (0.21-1.20); NEUTROPHILS 65.6 %; NEUTROPHILS ABSOLUTE 3.04 10/3/uL (2.02-8.40); RED CELL COUNT 5.49 10/6/uL (4.7-6.1); WHITE BLOOD CELLS 4.6 10/3/uL (4.5-10.5)
[2016-08-25 16:28] LABS: HEMATOCRIT 42.1 % (40.0-51.0); MANUAL DIFF NO %; PLATELET COUNT 149 10/3/uL (150-400)
[2016-08-25 16:41] LABS: BUN (BLOOD UREA NITROGEN) 25 MG/DL (6-23); CALCIUM, SERUM 9.5 MG/DL (8.5-10.4); CHLORIDE, SERUM 103 MMOL/L (96-112); GFR AFRICAN AMERICAN 5 ML/MIN (>=60); GFR NON AFRICAN AMERICAN 4 ML/MIN (>=60); PHOSPHORUS, SERUM 4.6 MG/DL (2.5-4.5); SODIUM, SERUM 137 MMOL/L (135-148)
[2016-08-25 16:42] LABS: CO2 (CARBON DIOXIDE) 27 MMOL/L (24-34); GLUCOSE, SERUM 136 MG/DL (60-99)
[2016-08-25 16:44] LABS: POTASSIUM, SERUM 6.4 MMOL/L (3.5-5.3)
[2016-08-26 06:51] LABS: ALBUMIN 2.8 G/DL (3.5-5.0); CALCIUM, SERUM 10.3 MG/DL (8.5-10.4); CHLORIDE, SERUM 102 MMOL/L (96-112); CO2 (CARBON DIOXIDE) 26 MMOL/L (24-34); PHOSPHORUS, SERUM 5.2 MG/DL (2.5-4.5); SODIUM, SERUM 132 MMOL/L (135-148)
[2016-08-26 06:53] LABS: BUN (BLOOD UREA NITROGEN) 18 MG/DL (6-23); CREATININE 7.29 MG/DL (0.70-1.30); GFR AFRICAN AMERICAN 8 ML/MIN (>=60); GFR NON AFRICAN AMERICAN 7 ML/MIN (>=60); GLUCOSE, SERUM 71 MG/DL (60-99); POTASSIUM, SERUM 7.1 MMOL/L (3.5-5.3)
[2016-08-26 10:48] LABS: ALBUMIN 2.8 G/DL (3.5-5.0); BUN (BLOOD UREA NITROGEN) 9 MG/DL (6-23); CALCIUM, SERUM 9.3 MG/DL (8.5-10.4); CHLORIDE, SERUM 103 MMOL/L (96-112); CO2 (CARBON DIOXIDE) 36 MMOL/L (24-34); CREATININE 4.05 MG/DL (0.70-1.30); GFR AFRICAN AMERICAN 17 ML/MIN (>=60); GFR NON AFRICAN AMERICAN 14 ML/MIN (>=60); GLUCOSE, SERUM 148 MG/DL (60-99); PHOSPHORUS, SERUM 2.7 MG/DL (2.5-4.5); POTASSIUM, SERUM 3.8 MMOL/L (3.5-5.3); SODIUM, SERUM 140 MMOL/L (135-148)
[2016-08-26 12:27] LABS: BASOPHILS 0.3 %; BASOPHILS ABSOLUTE 0.01 10/3/uL (0.0-0.16); EOSINOPHILS 4.7 %; EOSINOPHILS ABSOLUTE 0.17 10/3/uL (0.0-0.53); HEMATOCRIT 44.4 % (40.0-51.0); HEMOGLOBIN 13.1 g/dL (13.6-17.8); LYMPHOCYTES 26.7 %; LYMPHOCYTES ABSOLUTE 0.97 10/3/uL (0.67-4.30); MANUAL DIFF NO %; MEAN CORPUS HGB CONC 29.5 g/dL (32.0-36.0); MEAN CORPUSCULAR HEMOGLOB 22.9 pg (26.0-34.0); MEAN CORPUSCULAR VOLUME 77.6 fL (80-100); MEAN PLATELET VOLUME 9.6 fL (9.2-13.0); MONOCYTES 14.9 %; MONOCYTES ABSOLUTE 0.54 10/3/uL (0.21-1.20); NEUTROPHILS 53.4 %; NEUTROPHILS ABSOLUTE 1.94 10/3/uL (2.02-8.40); PLATELET COUNT 156 10/3/uL (150-400); RBC DISTRIBUTION WIDTH 17.8 % (12.0-16.0); RED CELL COUNT 5.72 10/6/uL (4.7-6.1); WHITE BLOOD CELLS 3.6 10/3/uL (4.5-10.5)
[2016-08-26 12:40] LABS: ALBUMIN 2.9 G/DL (3.5-5.0); BUN (BLOOD UREA NITROGEN) 7 MG/DL (6-23); CALCIUM, SERUM 9.3 MG/DL (8.5-10.4); CHLORIDE, SERUM 106 MMOL/L (96-112); CO2 (CARBON DIOXIDE) 32 MMOL/L (24-34); CREATININE 3.44 MG/DL (0.70-1.30); GFR AFRICAN AMERICAN 20 ML/MIN (>=60); GFR NON AFRICAN AMERICAN 18 ML/MIN (>=60); GLUCOSE, SERUM 141 MG/DL (60-99); PHOSPHORUS, SERUM 2.8 MG/DL (2.5-4.5); SODIUM, SERUM 142 MMOL/L (135-148)
[2016-08-26 13:05] LABS: SED RATE 7 MM/HR (0-15)
[2016-08-26 18:01] LABS: SGOT(AST) 11 U/L (5-40); SGPT(ALT) 11 U/L (5-65); TOTAL BILIRUBIN 0.4 MG/DL (0-1.2); TOTAL PROTEIN 7.5 G/DL (6.0-8.5)
[2016-08-26 18:02] LABS: ALKALINE PHOSPHATASE 202 U/L (45-117); DIRECT BILIRUBIN < 0.1 MG/DL (0.0-0.4); INDIRECT BILIRUBIN(NOT ORDER) 0.3 MG/DL (0.1-0.9)
[2016-08-27 06:41] LABS: ALBUMIN 2.9 G/DL (3.5-5.0); CALCIUM, SERUM 8.6 MG/DL (8.5-10.4); CHLORIDE, SERUM 101 MMOL/L (96-112); CO2 (CARBON DIOXIDE) 27 MMOL/L (24-34); POTASSIUM, SERUM 5.7 MMOL/L (3.5-5.3); SODIUM, SERUM 136 MMOL/L (135-148)
[2016-08-27 06:42] LABS: BUN (BLOOD UREA NITROGEN) 18 MG/DL (6-23); CREATININE 6.51 MG/DL (0.70-1.30); GFR AFRICAN AMERICAN 9 ML/MIN (>=60); GFR NON AFRICAN AMERICAN 8 ML/MIN (>=60); GLUCOSE, SERUM 90 MG/DL (60-99); PHOSPHORUS, SERUM 3.9 MG/DL (2.5-4.5)
== END 2016-08-27 15:57 | disposition home or self-care (01) | DRG 252 ==
LOC: 4SO 15:43
PROVIDERS: Internal Medicine Nephrology; Nurse Practitioner; Surgery
PROC: 5A1D60Z (ICD-10-PCS; principal; 2016-08-25)
PROC: B51W1ZZ Fluoroscopy of Dialysis Shunt/Fistula using Low Osmolar Contrast (ICD-10-PCS; 2016-08-26)
PROC: 05743ZZ Dilation of Left Innominate Vein, Percutaneous Approach (ICD-10-PCS; 2016-08-26 18:15)
DX: T82.856A Stenosis of peripheral vascular stent, initial encounter (principal); N18.6 End stage renal disease; I13.2 Hypertensive heart and chronic kidney disease with heart failure and with stage 5 chronic kidney disease, or end stage renal disease; I42.8 Other cardiomyopathies; E87.5 Hyperkalemia; G62.9 Polyneuropathy, unspecified; R00.1 Bradycardia, unspecified; Y84.1 Kidney dialysis as the cause of abnormal reaction of the patient, or of later complication, without mention of misadventure at the time of the procedure; Z99.2 Dependence on renal dialysis; E78.5 Hyperlipidemia, unspecified; M10.9 Gout, unspecified; Z86.19 Personal history of other infectious and parasitic diseases; I50.9 Heart failure, unspecified; Z88.5 Allergy status to narcotic agent; Z79.899 Other long term (current) drug therapy; Z79.82 Long term (current) use of aspirin
CPT/HCPCS: 36902; 71010; 80048; 80069; 80076; 82533; 83605; 83735; 83880; 84484; 85025; 85610; 85652; 85730; 87040; 93005; 96374; 99285; A9270-GY; C1725; C1769; C1894; G0257; G0463; J0690; J2250; J3010; Q9966

== ENCOUNTER → 2016-09-28 17:33 | Emergency (ER) | payer MEDICARE, OTHER ==
[2016-09-28 14:16] LABS: BASOPHILS 0.1 %; BASOPHILS ABSOLUTE 0.01 10/3/uL (0.0-0.16); EOSINOPHILS 4.7 %; EOSINOPHILS ABSOLUTE 0.34 10/3/uL (0.0-0.53); HEMATOCRIT 46.5 % (40.0-51.0); HEMOGLOBIN 14.1 g/dL (13.6-17.8); IMMATURE GRANULOCYTES 0.1 %; IMMATURE GRANULOCYTES ABSOLUTE 0.01 10/3/uL (0.0-0.11); LYMPHOCYTES 13.8 %; MEAN CORPUS HGB CONC 30.3 g/dL (32.0-36.0); MEAN CORPUSCULAR HEMOGLOB 23.5 pg (26.0-34.0); MEAN CORPUSCULAR VOLUME 77.5 fL (80-100); MEAN PLATELET VOLUME 9.1 fL (9.2-13.0); MONOCYTES 8.8 %; MONOCYTES ABSOLUTE 0.64 10/3/uL (0.21-1.20); NEUTROPHILS 72.5 %; NEUTROPHILS ABSOLUTE 5.24 10/3/uL (2.02-8.40); PLATELET COUNT 192 10/3/uL (150-400); RBC DISTRIBUTION WIDTH 18.9 % (12.0-16.0)
[2016-09-28 14:18] LABS: ER CBC TAT 0 Hrs 09 Mins; MANUAL DIFF NO %; WHITE BLOOD CELLS 7.2 10/3/uL (4.5-10.5)
[2016-09-28 14:25] LABS: INTERNATIONAL NORMAL RATI 1.1 UNITS (-); PARTIAL THROMBO TIME 30.7 SEC (22.5-37.2); PROTIME (NOT ORD) 14.4 SEC (12.0-14.5)
[2016-09-28 14:34] LABS: CALCIUM, SERUM 9.3 MG/DL (8.5-10.4); CHEST PAIN PROFILE TAT 0 Hrs 25 Mins; CHLORIDE, SERUM 97 MMOL/L (96-112); CO2 (CARBON DIOXIDE) 29 MMOL/L (24-34); GFR AFRICAN AMERICAN 8 ML/MIN (>=60); GFR NON AFRICAN AMERICAN 7 ML/MIN (>=60); GLUCOSE, SERUM 74 MG/DL (60-99); POTASSIUM, SERUM 4.7 MMOL/L (3.5-5.3); SODIUM, SERUM 134 MMOL/L (135-148); TROPONIN I 0.04 NG/ML (<0.05)
[2016-09-28 14:37] LABS: BUN (BLOOD UREA NITROGEN) 23 MG/DL (6-23); CREATININE 7.32 MG/DL (0.70-1.30)
== END | disposition left against medical advice (07) ==
LOC: ER 17:33
PROVIDERS: Physician Assistant
DX: Z53.21 Procedure and treatment not carried out due to patient leaving prior to being seen by health care provider (principal); Z88.5 Allergy status to narcotic agent; Z79.82 Long term (current) use of aspirin; Z79.899 Other long term (current) drug therapy
CPT/HCPCS: 80048; 83735; 84484; 85025; 85610; 85730; 93005